=== PATIENT | male | born 1965 | race Caucasian/White ===

== ENCOUNTER 2021-10-04 00:11 | Day surgery (SDC) | payer OTHER, SELFPAY ==
[2021-09-15 13:09] VITALS: BMI 29.9
[2021-10-04 06:47] VITALS: BP 132/81; PULSE 72; RESP 20; TEMP 36.2; O2SAT 100; BMI 29.5
--- NOTE | 2021-10-04 07:15 | WPDANESEPPF ---
Anes - Initial Pre Proc Eval Procedure: Operation Date: 10/04/21 08:00 Proposed Procedures p Screening Colonoscopy - Ej Crews MD Date/Time: 10/04/21 07:15 Surgeon: Ej Crews MD Pre Op Diagnosis: neoplasm screening Patient Data Age: 56 Gender: M Height: 1.8 m Weight: 96.1 kg Last Vital Signs Temp 36.2 C L 10/04/21 06:47 Pulse 72 10/04/21 06:47 Resp 20 10/04/21 06:47 BP 132/81 10/04/21 06:47 Pulse Ox 100 10/04/21 06:47 O2 Del Method Room Air 10/04/21 06:47 Allergies Allergy/AdvReac Type Severity Reaction Status Date / Time No Known Allergies Allergy Verified 10/04/21 06:45 Home Medications Medication Instructions Recorded Confirmed Type cetirizine 10 mg tablet (Wal-Zyr 10 mg PO DAILY 06/02/19 10/04/21 History (cetirizine)) famotidine 10 mg tablet 10 mg PO DAILY 04/01/21 10/04/21 History Patient hx anesthesia problems: none Family hx anesthesia problems: none Results Review: All pre-operative results and documents have been reviewed as part of the pre-operative evaluation. [facility] Surgical History Surgical History (Updated 10/04/21 @ 07:16 by Phuc Carolina MD) H/O colonoscopy Family History Family History Father Hypertension Mother Patient's mother is in good health Sibling Patient's brother is in good health Social History Social History Smoking status: Never smoker Second hand tobacco smoke exposure: No Alcohol intake: current Drinks per week: 10 Substance use: never Living arrangements: with family Spiritual care concerns: No Anes - Eval Final PreProcedure Day of Procedure 10/04/21 07:15 Patient weight: overweight Heart: regular rate and rhythm Lungs: clear to auscultation Airway: Mallampati scale class II Neurological: alert and oriented Last oral intake: >/= 8 hours ASA classification: II Emergent: no Anesthesia type and monitoring: general GIVS and standard monitoring Results Review: All pre-operative results and documents have been reviewed as part of the pre-operative evaluation. Informed Consent: The patient's anesthetic plan and its attendant risks and benefits were discussed with the patient/family/POA. Questions were solicited and answers provided to the satisfaction of the patient/family/POA.
[2021-10-04] MEDS: LACTATED RINGERS 1,000 ML 150 ML IV CONT (07:18)
--- NOTE | 2021-10-04 07:50 | PM.HPGS ---
History of Present Illness History of Present Illness Consent: Risks, benefits, and alternatives have been discussed and questions answered. Patient agrees to proceed with procedure. Chief complaint: neoplasm screening Narrative: Keron Brink is a 56 year old male with colon polyp in 2017, due to have another one Review of Systems Constitutional: Constitutional: Denies headache(s) and Denies weakness Eyes: Eyes: Denies blurry vision ENT: Reports Normal hearing present, Denies headache(s) and Denies neck pain Cardiovascular: Cardiovascular: Denies chest pain and Denies dyspnea Respiratory: Respiratory: Denies dyspnea Gastrointestinal: Gastrointestinal: Reports no additional gastrointestinal complaints Genitourinary: Genitourinary: Denies dysuria Musculoskeletal: Musculoskeletal: Denies neck pain Integumentary/Breasts: Skin/Breast: Denies dry skin Neurologic: Reports Normal hearing present, Denies headache(s) and Denies weakness Psychiatric: Psychiatric: Denies anxiety Endocrine: Endocrine: Denies change in body appearance Hematologic/Lymphatic: Hematologic/Lymphatic: Denies easy bleeding Allergic/Immunologic: Allergic/Immunologic: Denies urticaria PMFSH Past Medical History Medical History (Updated 10/04/21 @ 07:51 by Ej Crews MD) Colon polyp Surgical History Surgical History (Updated 10/04/21 @ 07:16 by Phuc Carolina MD) H/O colonoscopy Family History Family History Father Hypertension Mother Patient's mother is in good health Sibling Patient's brother is in good health Social History Social History Smoking status: Never smoker Second hand tobacco smoke exposure: No Alcohol intake: current Drinks per week: 10 Substance use: never Living arrangements: with family Spiritual care concerns: No Meds Home Medications and Allergies Home Medications Medication Instructions Recorded Confirmed Type cetirizine 10 mg tablet (Wal-Zyr 10 mg PO DAILY 06/02/19 10/04/21 History (cetirizine)) famotidine 10 mg tablet 10 mg PO DAILY 04/01/21 10/04/21 History Allergies Allergy/AdvReac Type Severity Reaction Status Date / Time No Known Allergies Allergy Verified 10/04/21 06:45 Vital Signs Vital Signs - 24 hr 10/04/21 06:47 Temperature 97.2 F L Pulse Rate 72 Respiratory Rate 20 Blood Pressure 132/81 Pulse Oximetry 100 Oxygen Delivery Room Air Exam Const: General: comfortable and no acute distress HENMT: General nose exam: Normal nares present Eyes: General: appearance normal, both eyes and all related structures Neck: Neck: no JVD Resp: Auscultation: clear to auscultation bilaterally Cardio: Rate: regular rate Rhythm: regular rhythm GI: Inspection: non-distended GI Palp: Yes Soft to palpation Skin: General skin exam: normal color Neuro: General: gait normal Speech: normal speech Extrem: General: normal to inspection Psych: Mental Status: mental status grossly normal Assessment and Plan Assessment and plan (1) Colon polyp: Code(s): K63.5 - Polyp of colon Status: Acute Assessment and Plan: colonoscopy
[2021-10-04 08:14] VITALS: BP 101/63; PULSE 70; RESP 14; O2SAT 100
[2021-10-04 08:24] VITALS: BP 111/72; PULSE 71; RESP 14; O2SAT 100
[2021-10-04 08:34] VITALS: BP 124/77; PULSE 69; RESP 12; O2SAT 100
== END 2021-10-04 08:44 | disposition home or self-care (01) ==
PROVIDERS: PCP Internal Medicine; Visit Provider Internal Medicine Gastroenterology
PROC: 0DJD8ZZ Inspection of Lower Intestinal Tract, Via Natural or Artificial Opening Endoscopic (ICD-10-PCS; CPT 45378; principal; 2021-10-04 08:00)
DX: Z12.11 Encounter for screening for malignant neoplasm of colon (principal); D12.0 Benign neoplasm of cecum; K63.5 Polyp of colon; K57.30 Diverticulosis of large intestine without perforation or abscess without bleeding; K64.8 Other hemorrhoids
CPT/HCPCS: 45385; 88305; J2704; J7120